=== PATIENT | female | born 2005 | race Hispanic/Latino ===

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

== ENCOUNTER 2024-03-14 21:08 | Emergency (ER) | payer MEDICAID ==
[~2024-03-14] VITALS: Ht 157.5 cm; Wt 71.7 kg
--- NOTE | 2024-03-14 21:34 | ERN ---
ED Note History of Present Illness Stated Complaint: PELVIC PAIN WITH BLOOD IN URINE Chief Complaint: Pelvic Pain Time Seen by MD: 21:11 Dictation: This is a 18-year-old female with multiple medical problems presented to the emergency room with complaints of pelvic pain. She also reported blood in the urine. The pain she points to mostly hypogastric area and deep inside associated with dysuria. No history of any fevers. No nausea vomitings diarrhea hematemesis or melena Temperature 98.8 pulse 100 respirations 15 blood pressure 108/72 with a pulse oximetry of 98% on room air Bipolar, CVA, Diabetes-Type I, Diabetes-Type II, High Cholesterol, Hypertension, Seizure Allergies: Coded Allergies: No Known Drug Allergies (Unverified Allergy, Unknown, 11/03/19) Home Meds Active Scripts Peg 3350/Na Sulf,Bicarb,Cl/KCl (Golytely/Colyte Soln) 236-22.74G Soln, 4000 ML PO AD, #1 ML Mix as directed with water, drink 1 cup every 10 to 15 minutes until stools. 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 As described in the history of present illness MS/Extremity: Negative for injury and deformity Skin: Negative for rash, and discoloration Neuro: Negative for headache, weakness, numbness, tingling, and seizure Psych: Negative for suicide ideation, homicidal ideation, and hallucinations Initial Vital Sign VS Vital Signs Date Time Temp Pulse Resp B/P (MAP) Pulse Ox O2 Delivery O2 Flow Rate FiO2 03/14/24 21:11 98.8 100 15 108/72 98 Room Air* 0 21 Physical Exam Dictation General: awake, alert, NAD Head/Face: Normocephalic, atraumatic facial asymmetry with evidence of facial palsy and ptosis on the left side(which is old) Eyes: PERRL, EOMI, vision at baseline ENT: oral cavity clear, TMs clear, no signs of infection Neck: Trachea midline, supple, no nuchal rigidity Cardiovascular: RRR, normal S1/S2, No MRGs, no JVD Respiratory: CTAB, no respiratory distress, No rales or wheezes Abdomen: Soft, mild tenderness in the hypogastric area r, non-distended, normal bowel sounds, no guarding or rebound. Skin: Warm, dry, normal turgor, no rash MS/Extremity: Pulses equal, no cyanosis, neurovascular intact, FROM Neuro: COAx4, GCS 15, strength 5/5, CN 2-12 intact, normal cerebellar exam, normal gait, Psych: Normal behavior, mood, and affect normal Extremities-trace edema without any palpable cords, Homans sign is negative Results (Laboratory/Radiology) Laboratory/Radiology Laboratory Tests Test 03/14/24 21:35 03/14/24 21:40 White Blood Count 12.2 K/uL (4.8-10.8) H Red Blood Count 5.01 MIL/uL (4.00-5.50) Hemoglobin 13.6 g/dL (12.0-16.0) Hematocrit 39.4 % (36-48) Mean Corpuscular Volume 78.6 fL (80-100) L Mean Corpuscular Hemoglobin 27.1 pg (27.0-33.0) Mean Corpuscular Hemoglobin Concent 34.5 g/dL (32.0-36.0) Red Cell Distribution Width 12.3 % (11.0-15.5) Platelet Count 243 K/uL (130-400) Mean Platelet Volume 11.7 fL (7.5-10.5) H Immature Granulocyte % (Auto) 0.2 % (0-1) Neutrophils (%) (Auto) 65.1 % (40.0-77.0) Lymphocytes (%) (Auto) 26.3 % (21.0-51.0) Monocytes (%) (Auto) 6.5 % (3.0-13.0) Eosinophils (%) (Auto) 1.6 % (0.0-8.0) Basophils (%) (Auto) 0.3 % (0.0-5.0) Neutrophils # (Auto) 7.9 K/uL (1.8-7.7) H Lymphocytes # (Auto) 3.2 K/uL (1.0-4.8) Monocytes # (Auto) 0.8 K/uL (0.1-1.0) Eosinophils # (Auto) 0.20 K/uL (0.00-0.70) Basophils # (Auto) 0.04 K/uL (0.00-0.20) Absolute Immature Granulocyte (auto 0.03 K/uL (0-1) Nucleated Red Blood Cells 0.0 % (0.0-0.19) Sodium Level 140 mmol/L (136-145) Potassium Level 3.5 mmol/L (3.5-5.1) Chloride Level 104 mmol/L (101-111) Carbon Dioxide Level 28 mmol/L (21-32) Blood Urea Nitrogen 7 mg/dL (7-18) Creatinine 0.5 mg/dL (0.5-1.0) Glomerular Filtration Rate Calc 138 mL/min (>90) Random Glucose 382 mg/dL (70-105) H Total Calcium 8.5 mg/dL (8.5-10.1) Urine Color RED (YELLOW) Urine Appearance BLOODY (CLEAR) H Urine pH 6.5 (5.0-8.0) Urine Specific [place] 1.020 (1.001-1.031) Urine Protein 100 mg/dL (NEGATIVE) H Urine Glucose (UA) >=1000 mg/dL (NEGATIVE) H Urine Ketones 15 mg/dL (NEGATIVE) H Urine Occult Blood LARGE (NEGATIVE) H Urine Nitrate POSITIVE (NEGATIVE) H Urine Bilirubin NEGATIVE mg/dL (NEGATIVE) Urine Urobilinogen 1.0 mg/dL (0.2-1.0) Urine Leukocyte Esterase TRACE Bernice/uL (NEGATIVE) H Urine RBC TNTC /HPF (0-1) H Urine WBC 11-25 /HPF (0-1) H Urine Squamous Epithelial Cells None Seen /HPF (0-2) Urine Bacteria Few /HPF (None Seen) Urine HCG, Qualitative NEGATIVE (NEGATIVE) Labs Reviewed?: Yes ED Course ED Course Orders Procedure Category Date Status Time Cbc With Differential LAB 03/14/24 Complete : Basic Metabolic Panel LAB 03/14/24 Complete : Urinalysis Profile LAB 03/14/24 Complete ,Urine Test LAB 03/14/24 Complete 21: 0.9%Nacl 1000ml (Ns PHA 03/14/24 Complete 1000ml) 22:00 Insulin Regular, PHA 03/14/24 Complete Human 3ml (Humulin R 22:00 Culture Urine LIZETTE 03/14/24 In Process 21:58 Ceftriaxone 1g Vial PHA 03/14/24 Verified (Rocephine 1g Inj) 22:30 Phenazopyridine Hcl PHA 03/14/24 Verified 200 Mg Tab (Pyridium 22:30 Current Medications Medications (Trade) Dose Ordered Sig/Kendall Route PRN Reason Start Time Stop Time Status Last Admin Dose Admin Insulin Human Regular (humuLIN R 100 UNIT/ML 3ML) 10 unit ONCE ONCE IV 03/14/24 22:00 03/14/24 22:01 DC Sodium Chloride 1,000 ml @ 0 mls/hr ONCE ONCE IV 03/14/24 22:00 03/14/24 22:01 DC 03/14/24 22:09 Vital Signs Date Time Temp Pulse Resp B/P (MAP) Pulse Ox O2 Delivery O2 Flow Rate FiO2 03/14/24 21:50 98.4 104 18 110/68 97 Room Air* 0 21 03/14/24 21:12 98.8 100 15 108/72 98 Room Air 0 03/14/24 21:11 98.8 100 15 108/72 98 Room Air* 0 21 We will perform diagnostic labs, advanced imaging and administer medications according to the patient's complaint. Once the results are available, will review and personally interpreted the labs to rule out any acute life- threatening emergency the trach require immediate intervention and treatment. I will then re-evaluate the patient after treatment and diagnostic exams have return to determine whether the patient requires any further testing, can safely be discharged home or need further admission to hospital for additional treatment and evaluation. 10:00 p.m. labs reviewed Accu-Chek was 355 and IV fluids and insulin was added. 10:15 p.m. CBC showed a white count of 12.2 BNP 7 is within normal limits except for the sugar of 382. Urinalysis is very abnormal with a very high leuko esterase too numerous to count WBCs as well as RBCs. Urine test is negative. We will give a dose of IV antibiotic and discharge her on p.o. antibiotic t herapy. Medical Decision Making MDM MDM: Differential diagnosis: Rationale: Tests considered and ordered secondary to shared decision making include: Previous outside records reviewed: Old ER visits. Risk of complication and/or morbidity or mortality of patient management: None Medications-Per medication reconciliation Need for hospitalization: Patient does not meet criteria for hospitalization. Need for emergency major/minor surgery: No There are no social concerns with this patient. Prescription drug management Prescriptions will include symptomatic care Patient's prior external medical records from other ER visits were reviewed by me as indicated. Prior testing and results from previous visits were reviewed. Prior tests were taken into account with medical decision making and resource utilization, independent historian/historians were used to obtain complete medical history. I independently interpreted the test that were performed, results were reviewed by me and considered findings on radiology if ordered. Medical management and examination interpretation discussions were had by me with other qualified healthcare professionals as indicated for the patient's care. Problem List Problem List: (1) Acute cystitis (2) Uncontrolled diabetes mellitus with hyperglycemia, with long-term current use of insulin (3) History of nephrolithiasis DX & DISP Disposition: Discharge Departure Impression: Primary Impression: Acute cystitis Additional Impressions: Uncontrolled diabetes mellitus with hyperglycemia, with long-term current use of insulin, History of nephrolithiasis Condition: Stable Scripts Phenazopyridine HCl (Pyridium) 200 Mg Tablet 200 MG PO TID for painful urination, #10 TAB 0 Refills Prov: GERRY LEIGH MD 03/14/24 Nitrofurantoin Monohyd/M-Cryst (Macrobid 100 mg Capsule) 100 Mg Capsule 1 CAP PO BID for 10 Days, #20 CAP 0 Refills Prov: GERRY LEIGH MD 03/14/24 Additional Instructions: Patient and the caregiver have been informed of all the diagnostic tests and the imaging conducted during the today's visit to the emergency room and has verbalized understanding of the results I have personally reviewed and interpreted all diagnostic exams performed here in the ER today as well as the vital signs documented by the nursing staff. The patient is now being discharged to home and should follow up with the primary care physician or the s pecialist as directed by the ER staff. Follow-up with primary care provider in 1 to 2 days. Take medications as directed here in the emergency room. Okay to continue home medications unless otherwise discussed during your visit in the emergency room today. Return to your nearest emergency room if symptoms worsen or if there is no improvement. Call 911 if you need immediate assistance. Take Tylenol or Motrin [id number] as needed and if no contraindications are present. Increase oral hydration. A wound culture or urine culture was ordered here in the emergency room department please follow-up with primary care provider and advise them to get repeat ports from our facility. If you had any Vinh wrap/splints that were applied here, please do not remove them until you see your primary care or specialty. Referrals: MEHNAZ DOBBINS DO (PCP) GERRY LEIGH MD Mar 14, 2024 21:34
[2024-03-14 21:43] LABS: BASOPHILS # (AUTO) 0.04 K/uL (0.00-0.20); BASOPHILS % (AUTO) 0.3 % (0.0-5.0); EOSINOPHILS % (AUTO) 1.6 % (0.0-8.0); HEMATOCRIT 39.4 % (36-48); IMMATURE GRANULOCYTE ABSOLUTE 0.03 K/uL (0-1); LYMPHOCYTES # (AUTO) 3.2 K/uL (1.0-4.8); LYMPHOCYTES % (AUTO) 26.3 % (21.0-51.0); MEAN CORPUSCULAR HEMOGLOBIN 27.1 pg (27.0-33.0); MEAN CORPUSCULAR HGB CONC 34.5 g/dL (32.0-36.0); MEAN CORPUSCULAR VOLUME 78.6 fL (80-100); MONOCYTES # (AUTO) 0.8 K/uL (0.1-1.0); MONOCYTES % (AUTO) 6.5 % (3.0-13.0); NEUTROPHILS # (AUTO) 7.9 K/uL (1.8-7.7); NEUTROPHILS % (AUTO) 65.1 % (40.0-77.0); PLATELET COUNT (AUTO) 243 K/uL (130-400); RED BLOOD CELL COUNT(AUTO) 5.01 MIL/uL (4.00-5.50); RED CELL DISTRIBUTION WIDTH 12.3 % (11.0-15.5); WHITE BLOOD COUNT (AUTO) 12.2 K/uL (4.8-10.8)
[2024-03-14 21:51] LABS: CREATININE 0.5 mg/dL (0.5-1.0); POTASSIUM 3.5 mmol/L (3.5-5.1)
[2024-03-14 21:54] LABS: BILIRUBIN,URINE NEGATIVE (NEGATIVE); GLUCOSE, URINE (UA) >=1000 mg/dL (NEGATIVE); KETONES,URINE 15 mg/dL (NEGATIVE); LEUKOCYTE ESTERASE ,URINE TRACE Leu/uL (NEGATIVE); NITRATE,URINE POSITIVE (NEGATIVE); OCCULT BLOOD,URINE LARGE (NEGATIVE); PH,URINE 6.5 (5.0-8.0); PROTEIN,URINE 100 mg/dL (NEGATIVE)
[2024-03-14 21:58] LABS: ADD UA MICROSCOPIC YES; APPEARANCE,URINE BLOODY (CLEAR); COLOR,URINE RED (YELLOW)
[2024-03-14 22:03] LABS: BACTERIA,URINE Few /HPF (None Seen); RBC,URINE TNTC /HPF (0-1)
[2024-03-14 22:04] LABS: SQUAMOUS EPITHELIAL CELL,UR None Seen /HPF (0-2)
[2024-03-14 22:05] LABS: HCG,QUALITATIVE URINE NEGATIVE (NEGATIVE)
[2024-03-14] MEDS: 0.9%NACL 1000ML 1,000 ML IV ONE (22:09)
[2024-03-14] MEDS ORDERED: NITR100C4 PO (22:19)
[2024-03-14] MEDS ORDERED: PHEN-776 PO (22:19)
[2024-03-14] MEDS: INSULIN humuLIN R 100 UNIT/ML 3ML IV ONE (22:22)
[2024-03-14] MEDS: cefTRIAXone 1G VIAL IVPB ONE (22:26)
[2024-03-14] MEDS: PHENAZOpyridine HCL 200 MG TAB 200 MG TABLET PO ONE (22:27)
[2024-03-14 23:14] VITALS: BP 115/56; PULSE 99; RESP 18; TEMP 98.4; O2SAT 98
== END 2024-03-14 23:34 | disposition home or self-care (01) ==
LOC: EDH 21:08 → EDBD 21:08 → EDH 23:34
DX: N30.01 Acute cystitis with hematuria (principal); E10.65 Type 1 diabetes mellitus with hyperglycemia; E78.00 Pure hypercholesterolemia, unspecified; I10 Essential (primary) hypertension; Z79.4 Long term (current) use of insulin; Z86.73 Personal history of transient ischemic attack (TIA), and cerebral infarction without residual deficits
CPT/HCPCS: 99284; 96365; 96375; 80048; 85025; 87086; 82948; 81001; 81025; 36415; J1815; J7030; J0696

== ENCOUNTER 2024-03-30 13:32 | Emergency (ER) | payer MEDICAID ==
[~2024-03-30] VITALS: Ht 157.5 cm; Wt 71.7 kg
[~2024-03-30 13:32] MED LIST changes: +NITR100C4 PO; +PHEN-776 PO
--- NOTE | 2024-03-30 13:40 | ERN ---
ED Note History of Present Illness Stated Complaint: DYSURIA, PELVIC PAIN Chief Complaint: Painful Urination Time Seen by MD: 13:33 Dictation: PATIENT IS A 18-YEAR-OLD FEMALE COMING IN TODAY WITH LEFT FLANK PAIN THAT RADIATES TO LEFT LOWER QUADRANT WITH NAUSEA. SHE ALSO STATES SHE IS HAVING DYSURIA AND FREQUENCY. STATES SHE HAS A HISTORY OF KIDNEY STONES AND HAS A DIABETIC. SHE DID NOT GO SEE HER PRIMARY CARE DOCTOR. Allergies: Coded Allergies: No Known Drug Allergies (Unverified Allergy, Unknown, 11/03/19) Home Meds Active Scripts Ibuprofen (Ibuprofen 800 mg Tab) 800 Mg Tab, 800 MG PO Q8H PRN for fever or pain, #30 TAB 0 Refills Prov:ESTUARDO JUAREZ NP 03/30/24 Phenazopyridine HCl (Pyridium) 200 Mg Tablet, 200 MG PO TID for painful urination, #10 TAB 0 Refills Prov:ESTUARDO JUAREZ NP 03/30/24 Amoxicillin/Potassium Clav (Amox Tr-K Clv 875-125 mg Tab) 875 Mg-125 Mg Tablet, 1 EACH PO BID for 7 Days, #14 TAB 0 Refills Prov:ESTUARDO JUAREZ NP 03/30/24 Phenazopyridine HCl (Pyridium) 200 Mg Tablet, 200 MG PO TID for painful urination, #10 TAB 0 Refills Prov:GERRY LEIGH MD 03/14/24 Nitrofurantoin Monohyd/M-Cryst (Macrobid 100 mg Capsule) 100 Mg Capsule, 1 CAP PO BID for 10 Days, #20 CAP 0 Refills Prov:GERRY LEIGH MD 03/14/24 Peg 3350/Na Sulf,Bicarb,Cl/KCl (Golytely/Colyte Soln) 236-22.74G Soln, 4000 ML PO AD, #1 ML Mix as directed with water, drink 1 cup every 10 to 15 minutes until stools. Prov:ESTUARDO JUAREZ NP 06/14/23 Ondansetron (Ondansetron Odt) 4 Mg Tab.rapdis, 4 MG PO Q6HPRN PRN for nausea, #10 TAB 0 Refills Prov:JANY BONNER Sr., MD 03/02/23 Metronidazole (Metronidazole) 500 Mg Tablet, 500 MG PO TID for 10 Days, #30 TAB 0 Refills Prov:JANY BONNER Sr., MD 03/02/23 Metronidazole (Metronidazole) 500 Mg Tablet, 500 MG PO TID for 10 Days, #30 TAB 0 Refills Prov:JANY BONNER Sr., MD 02/03/23 Past Medical History Past Medical History: Bipolar, CVA, Diabetes-Type I, Diabetes-Type II, High Cholesterol, Hypertension, Seizure Additional Past Medical Hx: 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 Surgical History: None PSYCH History: no pertinent psych hx Family History: Negative History: Not Applicable LMP: Mar 17, 2024 RN Note Reviewed/Agreed w/PFSH: Yes Review of System Dictation CONSTITUTIONAL: NEGATIVE EXCEPT FOR HPI HEAD/FACE: NEGATIVE EXCEPT FOR HPI EENT: NEGATIVE EXCEPT FOR HPI RESPIRATORY: NEGATIVE EXCEPT FOR HPI GASTROINTESTINAL/ABDOMINAL: NEGATIVE EXCEPT FOR HPI LEFT FLANK PAIN RADIATING LEFT LOWER QUADRANT WITH NAUSEA GENITOURINARY: NEGATIVE EXCEPT FOR HPI DYSURIA AND FREQUENCY MUSCULOSKELETAL: NEGATIVE EXCEPT FOR HPI INTEGUMENTARY: NEGATIVE EXCEPT FOR HPI NEUROLOGICAL/PSYCH: NEGATIVE EXCEPT FOR HPI HEMATOLOGIC/LYMPHATIC: NEGATIVE EXCEPT FOR HPI ALL SYSTEMS NEGATIVE, EXCEPT NOTED ABOVE. 13 POINT REVIEW OF SYSTEMS ASSESSED AND ALL NEGATIVE EXCEPT FOR ABOVE. Initial Vital Sign VS Vital Signs Date Time Temp Pulse Resp B/P (MAP) Pulse Ox O2 Delivery O2 Flow Rate FiO2 03/30/24 13:33 98.4 105 16 106/75 98 Room Air 0 03/30/24 16:22 21 Physical Exam Dictation VITAL SIGNS REVIEWED GENERAL APPEARANCE: ALERT, ORIENTED X 3, MODERATE ACUTE DISTRESS, WELL DEVELOPED, NOURISHED. HEAD AND FACE: NON-TRAUMATIC. EYES: PERRL, PINK CONJUNCTIVAS, EYELID NO TRAUMA, ANTERIOR CHAMBER WITH ARCUS SENILIS. EARS: PINNAS INTACT AND NO SIGNS OF TRAUMA OR ERYTHEMA EAR CANALS CLEAR AND NO DISCHARGE TM NO ERYTHEMA NOSE: NO DISCHARGE, NO BLEEDING. OROPHARYNX: MOUTH NORMAL, TONGUE PINK, PHARYNX CLEAR,NO ERYTHEMA, TONSILS NO EXUDATES, NO ABSCESSES NOTED, MUCOUS MEMBRANE MOIST NECK: SUPPLE, NON-TENDER, NO THYROMEGALY, NO MASSES, NO JVD, NO BRUITS BREAST:DEFERRED CHEST:NO TENDERNESS, NO CREPITUS, NO PARADOXICAL MOVEMENT, NO RETRACTIONS LUNGS:CLEAR, WELL-VENTILATED, SYMMETRIC, NO RALES, NO WHEEZING, NO RHONCHI, NO STRIDOR, GOOD BREATH SOUNDS BILATERALLY HEART: REGULAR RATE, REGULAR RHYTHM, NO MURMUR, NO GALLOPS VASCULAR: NO PERIPHERAL EDEMA, ABDOMEN: SOFT, POSITIVE BOWEL SOUNDS, NONDISTENDED, NO GUARDING, NONTENDER, NO REBOUND, NO MASSES NO HEPATOMEGALY, NO SPLENOMEGALY, NO DAVISON'S SIGN, NO HERNIAS. NEGATIVE CVAT RECTAL: DEFERRED GENITAL: DEFERRED MILD SUPRAPUBIC TENDERNESS, PALPATED OVER HER CLOTHES NEUROLOGICAL: NORMAL SPEECH, MOTOR FUNCTION INTACT, SENSORY FUNCTION INTACT MUSCULOSKELETAL: NECK NONTENDER, FULL RANGE OF MOTION, BACK NONTENDER, FULL RANGE OF MOTION, EXTREMITIES: NONTENDER, FULL RANGE OF MOTION SKIN: COLOR PINK, DRY, NO TURGOR, NO RASH, NO LACERATIONS, NO ABRASIONS, NO CONTUSIONS. LYMPHATIC: DEFERRED Results (Laboratory/Radiology) Laboratory/Radiology ABDOMEN/PELVIS W/O CONTRAST HISTORY: No additional history given. COMPARISON: None TECHNIQUE: Multiple sequential axial images of the abdomen and pelvis were obtained from the dome of the diaphragm through symphysis pubis. Patient was not given contrast through intravenous route. Oral contrast was not given. FINDINGS: No pleural effusion is seen bilaterally. There is no evidence of parenchymal disease or pulmonary nodule of the visualized lower lungs. The heart is not enlarged. The liver, spleen, adrenal glands and pancreas are unremarkable. There is no evidence of hydronephrosis bilaterally. No evidence of renal stone is seen. Fecal material is seen in the colon. There are normal size retroperitoneal and mesenteric lymph nodes. No ascites is seen. No CT evidence of acute appendicitis is seen. Clinical correlation is recommended. Pelvic sidewalls are symmetric bilaterally. Bladder is moderately distended. IMPRESSION: 1. No acute findings. Labs Reviewed?: Yes ED Course ED Course 1615 PATIENT HAS A LARGE UTI WITH HEMATURIA. BLOOD SUGAR 385 HOWEVER SHE STATES SHE WILL TAKE HER DIABETIC MEDICATIONS WHEN SHE GETS HOME, SHE SAID SHE FORGOT IT THIS MORNING. WE WILL GIVE1 G OF ROCEPHIN IV DISCHARGED HOME WITH ACUTE CYSTITIS WITH HEMATURIA UNCONTROLLED DIABETES TOLD TO SEE HER PRIMARY CARE DOCTOR Medical Decision Making MDM MDM: DIFFERENTIAL DIAGNOSIS: DIVERTICULITIS/CYSTITIS/ECTOPIC /ELECTROLYTE IMBALANCE/DEHYDRATION/PELVIC PAIN RATIONALE: TESTS CONSIDERED AND ORDERED SECONDARY TO SHARED DECISION MAKING INCLUDE: LAB/RADIOLOGY PREVIOUS OUTSIDE RECORDS REVIEWED: OLD ER VISITS. RISK OF COMPLICATION AND/OR MORBIDITY OR MORTALITY OF PATIENT MANAGEMENT: NONE MEDICATIONS-PER MEDICATION RECONCILIATION SEE NURSE'S NOTE NEED FOR HOSPITALIZATION: PATIENT DOES NOT MEET CRITERIA FOR HOSPITALIZATION. NO NEED FOR EMERGENCY MAJOR/MINOR SURGERY: NO THERE ARE NO SOCIAL CONCERNS WITH THIS PATIENT. PRESCRIPTION DRUG MANAGEMENT AUGMENTIN PRESCRIPTIONS WILL INCLUDE SYMPTOMATIC CARE PATIENT'S PRIOR EXTERNAL MEDICAL RECORDS FROM OTHER ER VISITS WERE REVIEWED BY ME INDICATED. PRIOR TESTING AND RESULTS FROM PREVIOUS VISITS WERE REVIEWED. PRIOR TESTS WERE TAKEN INTO ACCOUNT WITH MEDICAL DECISION MAKING AND RESOURCE UTILIZATION, INDEPENDENT HISTORIAN/HISTORIANS WERE USED TO OBTAIN COMPLETE MEDICAL HISTORY. I INDEPENDENTLY INTERPRETED THE TEST THAT WERE PERFORMED, RESULTS WERE REVIEWED BY ME AND CONSIDERED FINDINGS ON RADIOLOGY IF ORDERED. MEDICAL MANAGEMENT AND EXAMINATION INTERPRETATION DISCUSSIONS WERE HAD BY ME WITH OTHER QUALIFIED HEALTHCARE PROFESSIONALS INDICATED FOR THE PATIENT'S CARE. DX & DISP Disposition: Discharge Departure Impression: Primary Impression: Acute cystitis with hematuria Additional Impressions: Dysuria, Uncontrolled diabetes mellitus Condition: Stable Scripts Ibuprofen (Ibuprofen 800 mg Tab) 800 Mg Tab 800 MG PO Q8H PRN for fever or pain, #30 TAB 0 Refills Prov: ESTUARDO JUAREZ NP 03/30/24 Phenazopyridine HCl (Pyridium) 200 Mg Tablet 200 MG PO TID for painful urination, #10 TAB 0 Refills Prov: ESTUARDO JUAREZ NP 03/30/24 Amoxicillin/Potassium Clav (Amox Tr-K Clv 875-125 mg Tab) 875 Mg-125 Mg Tablet 1 EACH PO BID for 7 Days, #14 TAB 0 Refills Prov: ESTUARDO JUAREZ NP 03/30/24 Additional Instructions: FOLLOW-UP WITH PRIMARY CARE PROVIDER IN 1 TO 2 DAYS. TAKE MEDICATIONS DIRECTED HERE IN THE EMERGENCY ROOM. OKAY TO CONTINUE HOME MEDICATIONS UNLESS OTHERWISE DISCUSSED DURING YOUR VISIT IN THE EMERGENCY ROOM TODAY. RETURN TO YOUR NEAREST EMERGENCY ROOM IF SYMPTOMS WORSEN OR IF THERE IS NO IMPROVEMENT. CALL 911 IF YOU NEED IMMEDIATE ASSISTANCE. TAKE TYLENOL OR MOTRIN [id number] NEEDED AND IF NO CONTRAINDICATIONS ARE PRESENT. INCREASE ORAL HYDRATION. A WOUND CULTURE OR URINE CULTURE WAS ORDERED HERE IN THE EMERGENCY ROOM DEPARTMENT PLEASE FOLLOW-UP WITH PRIMARY CARE PROVIDER AND ADVISE THEM TO GET REPEAT PORTS FROM OUR FACILITY. IF YOU HAD ANY LUIS WRAP/SPLINTS THAT WERE APPLIED HERE, PLEASE DO NOT REMOVE THEM UNTIL YOU SEE YOUR PRIMARY CARE OR SPECIALTY. TAKE ANTIBIOTICS DIRECTED UNTIL GONE, TAKE YOUR DIABETIC MEDICATIONS SOON YOU RETURN HOME. INCREASE YOUR WATER INTAKE. SEE YOUR PRIMARY CARE DOCTOR FOR FOLLOW UP IN 1-2 DAYS Referrals: MEHNAZ DOBBINS DO (PCP) Time of Disposition: 16:20 I have reviewed the case, and I agree with, Diagnosis and Plan ATTESTATION BY PHYSICIAN I PERFORMED THE SUBSTANTIVE PORTION OF THE VISIT. I HAVE REVIEWED AND PERSONALLY MADE AND APPROVED THE MANAGEMENT PLAN THAT IS DOCUMENTED IN THE NOTE BY MYSELF FOR THE A PP. I ACKNOWLEDGED FOR RESPONSIBILITY FOR THE PATIENT'S MANAGEMENT PLAN. ESTUARDO JUAREZ NP Mar 30, 2024 13:40 WINSTON IQBAL MD Apr 02, 2024 18:13
[2024-03-30 14:01] LABS: BASOPHILS # (AUTO) 0.04 K/uL (0.00-0.20); BASOPHILS % (AUTO) 0.3 % (0.0-5.0); EOSINOPHILS # (AUTO) 0.15 K/uL (0.00-0.70); EOSINOPHILS % (AUTO) 1.3 % (0.0-8.0); HEMATOCRIT 46.1 % (36-48); IMMATURE GRANULOCYTE ABSOLUTE 0.03 K/uL (0-1); LYMPHOCYTES # (AUTO) 1.8 K/uL (1.0-4.8); LYMPHOCYTES % (AUTO) 15.2 % (21.0-51.0); MEAN CORPUSCULAR HEMOGLOBIN 26.6 pg (27.0-33.0); MEAN CORPUSCULAR HGB CONC 33.6 g/dL (32.0-36.0); MEAN CORPUSCULAR VOLUME 79.1 fL (80-100); MONOCYTES # (AUTO) 0.8 K/uL (0.1-1.0); MONOCYTES % (AUTO) 7.1 % (3.0-13.0); NEUTROPHILS % (AUTO) 75.8 % (40.0-77.0); PLATELET COUNT (AUTO) 237 K/uL (130-400); RED BLOOD CELL COUNT(AUTO) 5.83 MIL/uL (4.00-5.50); RED CELL DISTRIBUTION WIDTH 12.1 % (11.0-15.5); WHITE BLOOD COUNT (AUTO) 11.9 K/uL (4.8-10.8)
[2024-03-30 14:07] LABS: CREATININE 0.6 mg/dL (0.5-1.0); POTASSIUM 3.9 mmol/L (3.5-5.1)
[2024-03-30] MEDS: ondanSETRON 4MG INJ IVP ONE (14:12)
[2024-03-30] MEDS: 0.9%NACL 1000ML 1,000 ML IV ONE (14:12)
[2024-03-30] MEDS: ketOROlac 30MG VIAL (30MG/ML) IVP ONE (14:14)
--- NOTE | 2024-03-30 14:15 | NUR ---
PT IN CT AT THIS TIME
--- NOTE | 2024-03-30 14:52 | HMCIMG ---
CT ABDOMEN/PELVIS W/O CONTRAST HISTORY: No additional history given. COMPARISON: None TECHNIQUE: Multiple sequential axial images of the abdomen and pelvis were obtained from the dome of the diaphragm through symphysis pubis. Patient was not given contrast through intravenous route. Oral contrast was not given. FINDINGS: No pleural effusion is seen bilaterally. There is no evidence of parenchymal disease or pulmonary nodule of the visualized lower lungs. The heart is not enlarged. The liver, spleen, adrenal glands and pancreas are unremarkable. There is no evidence of hydronephrosis bilaterally. No evidence of renal stone is seen. Fecal material is seen in the colon. There are normal size retroperitoneal and mesenteric lymph nodes. No ascites is seen. No CT evidence of acute appendicitis is seen. Clinical correlation is recommended. Pelvic sidewalls are symmetric bilaterally. Bladder is moderately distended. IMPRESSION: 1. No acute findings. CT was performed with one or more following dose reduction techniques: automated exposure control, adjustment of the mA and kv according to patient's size, or use of a iterative reconstruction technique.
[2024-03-30 15:51] LABS: HCG,QUALITATIVE URINE NEGATIVE (NEGATIVE)
[2024-03-30 15:58] LABS: ADD UA MICROSCOPIC YES; APPEARANCE,URINE CLOUDY (CLEAR); BILIRUBIN,URINE NEGATIVE (NEGATIVE); COLOR,URINE LIGHT-YELLOW (YELLOW); GLUCOSE, URINE (UA) >=1000 mg/dL (NEGATIVE); KETONES,URINE 100 mg/dL (NEGATIVE); LEUKOCYTE ESTERASE ,URINE 250 Leu/uL (NEGATIVE); NITRATE,URINE NEGATIVE (NEGATIVE); OCCULT BLOOD,URINE LARGE (NEGATIVE); PROTEIN,URINE 30 mg/dL (NEGATIVE); UROBILINOGEN,URINE 0.2 mg/dL (0.2-1.0)
[2024-03-30 15:59] LABS: MUCUS,URINE RARE LPF (None Seen); RBC,URINE 51-100 /HPF (0-1); SQUAMOUS EPITHELIAL CELL,UR RARE /HPF (0-2); WBC CLUMP FEW /HPF (0-1); WBC,URINE TNTC /HPF (0-1)
[2024-03-30] MEDS ORDERED: AMOX1TAB16 PO (16:21)
[2024-03-30] MEDS ORDERED: IBUP-2077 PO (16:21)
[2024-03-30] MEDS ORDERED: PHEN-776 PO (16:21)
[2024-03-30 16:22] VITALS: BP 110/72; PULSE 90; RESP 16; TEMP 98.4; O2SAT 98
[2024-03-30] MEDS: cefTRIAXone 1G VIAL IVP ONE (16:53)
--- NOTE | 2024-04-01 08:23 | NUR ---
UPON REVIEW OF CULTURE RESULTS BY DR. HALL, ABX NEED TO CHANGE TO MACROBID 100MG PO BID X 7 DAYS. ATTEMPTED TO CALL PT, NO ASNWER LEFT VOICEMAIL.
== END 2024-03-30 17:22 | disposition home or self-care (01) ==
LOC: EDH 13:32
DX: N30.01 Acute cystitis with hematuria (principal); R30.0 Dysuria; E11.65 Type 2 diabetes mellitus with hyperglycemia; E78.00 Pure hypercholesterolemia, unspecified; I10 Essential (primary) hypertension; Z86.73 Personal history of transient ischemic attack (TIA), and cerebral infarction without residual deficits
CPT/HCPCS: 99285; 74176; 96374; 96361; 96375; 80048; 85025; 87086 ×2; 87186; 81001; 81025; 36415; J7030; J0696; J2405; J1885

== ENCOUNTER 2024-07-13 07:24 | Emergency (ER) | payer MEDICAID ==
[~2024-07-13] VITALS: Ht 157.5 cm; Wt 71.2 kg
[~2024-07-13 07:24] MED LIST changes: +AMOX1TAB16 PO; +IBUP-2077 PO
--- NOTE | 2024-07-13 07:34 | ERN ---
General Chief Complaint: Flank Pain Stated Complaint: LEFT FLANK PAIN Time Seen by MD: 07:26 Source: patient History of Present Illness Initial Comments Patient is a 18-year-old female coming in to be evaluated for left flank pain. Patient states that the pain is localized in the left flank region. She also states he does have a history of kidney stones has flare-ups as well. Patient states it is the pain began earlier in the morning. Allergies: Coded Allergies: No Known Drug Allergies (Unverified Allergy, Unknown, 11/03/19) Home Meds Active Scripts Ibuprofen (Ibuprofen 800 mg Tab) 800 Mg Tab, 800 MG PO Q8H PRN for fever or pain, #30 TAB 0 Refills Prov:ESTUARDO JUAREZ NP 03/30/24 Phenazopyridine HCl (Pyridium) 200 Mg Tablet, 200 MG PO TID for painful urination, #10 TAB 0 Refills Prov:ESTUARDO JUAREZ NP 03/30/24 Amoxicillin/Potassium Clav (Amox Tr-K Clv 875-125 mg Tab) 875 Mg-125 Mg Tablet, 1 EACH PO BID for 7 Days, #14 TAB 0 Refills Prov:ESTUARDO JUAREZ NP 03/30/24 Phenazopyridine HCl (Pyridium) 200 Mg Tablet, 200 MG PO TID for painful urination, #10 TAB 0 Refills Prov:GERRY LEIGH MD 03/14/24 Nitrofurantoin Monohyd/M-Cryst (Macrobid 100 mg Capsule) 100 Mg Capsule, 1 CAP PO BID for 10 Days, #20 CAP 0 Refills Prov:GERRY LEIGH MD 03/14/24 Peg 3350/Na Sulf,Bicarb,Cl/KCl (Golytely/Colyte Soln) 236-22.74G Soln, 4000 ML PO AD, #1 ML Mix as directed with water, drink 1 cup every 10 to 15 minutes until stools. Prov:ESTUARDO JUAREZ NP 06/14/23 Ondansetron (Ondansetron Odt) 4 Mg Tab.rapdis, 4 MG PO Q6HPRN PRN for nausea, #10 TAB 0 Refills Prov:JANY BONNER Sr., MD 03/02/23 Metronidazole (Metronidazole) 500 Mg Tablet, 500 MG PO TID for 10 Days, #30 TAB 0 Refills Prov:JANY BONNER Sr., MD 03/02/23 Metronidazole (Metronidazole) 500 Mg Tablet, 500 MG PO TID for 10 Days, #30 TAB 0 Refills Prov:JANY BONNER Sr., MD 02/03/23 Reported Medications Dapagliflozin Propanediol (Farxiga) 5 Mg Tablet, 1 TAB PO DAILY for 30 Days, #30 TAB 0 Refills 07/13/24 Buspirone HCl (Buspirone HCl) 5 Mg Tablet, 1 TAB PO BID for 30 Days, #60 TAB 0 Refills 07/13/24 Lisinopril (Lisinopril) 20 Mg Tablet, 1 TAB PO DAILY for 30 Days, #30 TAB 0 Refills 07/13/24 Insulin Glargine,Hum.rec.anlog (Lantus) 100 Unit/Ml Inj, 100 UNITS SQ DAILY, ML 07/13/24 Past Medical History Past Medical History: Bipolar, CVA, Diabetes-Type I, Diabetes-Type II, High Cholesterol, Hypertension, Seizure Medical History Other: 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 Past Surgical History: None Family History Family History: Negative Female( History) History: Not Applicable ROS Dictation CONSTITUTIONAL: No chills, no fever, no weakness, no diaphoresis, no malaise. HEAD/FACE: No signs of trauma. EENT: No eye pain, no blurred vision, no tearing, no double vision, no ear pain, no ear discharge, no nose pain, no nasal congestion, no throat pain, no throat swelling, no mouth pain. RESPIRATORY: No cough, no orthopnea, no SOB, no stridor, no wheezing. CARDIOVASCULAR: No chest pain, no edema, no palpitations, no syncope. GASTROINTESTINAL/ABDOMINAL: abdominal pain, no constipation, no diarrhea, no nausea, no vomiting. GENITOURINARY: No abnormal discharge, no dysuria, no frequent urination, no hematuria. No complaints of pain in the genitals. MUSCULOSKELETAL: No back pain, no gout, no joint pain, no joint swelling, no muscle pain, no muscle stiffness, no neck pain. INTEGUMENTARY: No change in color, no change in hair/nails, no dryness, no lesion, no lumps, no rash. NEUROLOGICAL/PSYCH: No anxiety, not depressed, no emotional problem, no headache, no numbness, no pre-existing deficit, no history of seizures, no tremors, no weakness. HEMATOLOGIC/LYMPHATIC: Not anemic, no history of blood clots, no apparent bleeding, no bruising, glands not swollen. All Systems Negative, Except as Noted. Physical Exam Physical Exam Dictation VITAL SIGNS: Reviewed. GENERAL APPEARANCE: Alert, oriented x3, no acute distress, obese. HEAD AND FACE: Non-traumatic. EYES: PERRL, pink conjunctivas, eyelid no trauma, anterior chamber clear. EARS: Pinnas intact and no signs of trauma or erythema. Ear canals clear and no discharge. TMs no erythema. NOSE: No discharge, no bleeding. OROPHARYNX: Mouth normal, teeth no caries, tongue pink. Pharynx clear, no erythema. Tonsils no exudates, no abscesses noted. Mucous membrane moist. NECK: Supple, non-tender, no thyromegaly, no masses, no JVD, no bruits. BREAST: Deferred. CHEST: No tenderness, no crepitus, no paradoxical movement, no retractions. LUNGS: Clear, well-ventilated, symmetric, no rales, no wheezing, no rhonchi, no stridor, good breath sounds bilaterally. HEART: Regular rate, regular rhythm, no murmur, no gallops. VASCULAR: No peripheral edema. ABDOMEN: Soft, positive bowel sounds, nondistended, no guarding, left flank pain, left CVA angle tingling in his, no rebound, no masses no hepatomegaly, no splenomegaly, no Levin's sign, no hernias. RECTAL: Deferred. GENITAL: Deferred. NEUROLOGICAL: Normal speech, gross motor function intact, gross sensory function intact. MUSCULOSKELETAL: Neck nontender, full range of motion, back nontender, full range of motion. EXTREMITIES: Nontender, full range of motion. SKIN: Color pink, dry, no turgor, no rash, no lacerations, no abrasions, no contusions. LYMPHATICS: Deferred. Results Laboratory and Microbiology Lab and Micro Result Laboratory Tests Test 07/13/24 07:45 White Blood Count 10.8 K/uL (4.8-10.8) Red Blood Count 5.89 MIL/uL (4.00-5.50) H Hemoglobin 15.5 g/dL (12.0-16.0) Hematocrit 45.2 % (36-48) Mean Corpuscular Volume 76.7 fL (80-100) L Mean Corpuscular Hemoglobin 26.3 pg (27.0-33.0) L Mean Corpuscular Hemoglobin Concent 34.3 g/dL (32.0-36.0) Red Cell Distribution Width 12.7 % (11.0-15.5) Platelet Count 266 K/uL (130-400) Mean Platelet Volume 11.4 fL (7.5-10.5) H Immature Granulocyte % (Auto) 0.4 % (0-1) Neutrophils (%) (Auto) 67.0 % (40.0-77.0) Lymphocytes (%) (Auto) 23.5 % (21.0-51.0) Monocytes (%) (Auto) 7.6 % (3.0-13.0) Eosinophils (%) (Auto) 1.3 % (0.0-8.0) Basophils (%) (Auto) 0.2 % (0.0-5.0) Neutrophils # (Auto) 7.3 K/uL (1.8-7.7) Lymphocytes # (Auto) 2.5 K/uL (1.0-4.8) Monocytes # (Auto) 0.8 K/uL (0.1-1.0) Eosinophils # (Auto) 0.14 K/uL (0.00-0.70) Basophils # (Auto) 0.02 K/uL (0.00-0.20) Absolute Immature Granulocyte (auto 0.04 K/uL (0-1) Nucleated Red Blood Cells 0.0 % (0.0-0.19) Urine Color STRAW (YELLOW) Urine Appearance TURBID (CLEAR) Urine pH 6.5 (5.0-8.0) Urine Specific [place] 1.010 (1.001-1.031) Urine Protein NEGATIVE mg/dL (NEGATIVE) Urine Glucose (UA) >=1000 mg/dL (NEGATIVE) H Urine Ketones 15 mg/dL (NEGATIVE) H Urine Occult Blood MODERATE (NEGATIVE) H Urine Nitrate NEGATIVE (NEGATIVE) Urine Bilirubin NEGATIVE mg/dL (NEGATIVE) Urine Urobilinogen 0.2 mg/dL (0.2-1.0) Urine Leukocyte Esterase SMALL Bernice/uL (NEGATIVE) H Urine RBC 2-5 /HPF (0-1) H Urine WBC TNTC /HPF (0-1) H Urine Squamous Epithelial Cells Few /HPF (0-2) Urine Bacteria Moderate /HPF (None Seen) H Sodium Level 136 mmol/L (136-145) Potassium Level 3.5 mmol/L (3.5-5.1) Chloride Level 100 mmol/L (101-111) L Carbon Dioxide Level 28 mmol/L (21-32) Blood Urea Nitrogen 6 mg/dL (7-18) L Creatinine 0.5 mg/dL (0.5-1.0) Glomerular Filtration Rate Calc 138 mL/min (>90) Random Glucose 376 mg/dL (70-105) H Total Calcium 9.2 mg/dL (8.5-10.1) Serum Test, Qualitative NEGATIVE (NEGATIVE) Urine Opiates Screen NEGATIVE (NEGATIVE) Urine Barbiturates Screen NEGATIVE (NEGATIVE) Urine Phencyclidine Screen NEGATIVE (NEGATIVE) Urine Amphetamines Screen NEGATIVE (NEGATIVE) Urine Benzodiazepines Screen NEGATIVE (NEGATIVE) Urine Cocaine Screen NEGATIVE (NEGATIVE) Urine Marijuana (THC) Screen NEGATIVE (NEGATIVE) Labs Reviewed?: Yes EKG/XRAY/US/CT/MRI CT Scan Comment [address] [address] IMAGING REPORT Signed PATIENT: CLARENCE ORTIZ MR#: [id number] : 2005 SEX: F AGE: 18 LOCATION: [facility] ORDER 6 STATUS: [facility] REPORT#: [id number] SERVICE REASON: LEFT FLANK PAIN ORDERING PHYSICIAN: WINSTON IQBAL MD PROCEDURE: ABD PEL WO - CT ABDOMEN/PELVIS W/O CONTRAST CT ABDOMEN WITHOUT CONTRAST. CT PELVIS WITHOUT CONTRAST. INDICATION: Left flank pain TECHNIQUE: Routine transaxial imaging using 5 mm slice thickness through the abdomen and pelvis without the administration of IV contrast. Thin slice reconstructions are also provided. Coronal and sagittal reformatted images acquired for interpretation. CT was performed with one or more of the following dose reduction techniques: Automated exposure control, adjustment of the mA and/or kV according to patient size, or use of iterative reconstruction technique. COMPARISON: 03/30/2024 FINDINGS: ON NONCONTRAST IMAGING: ABDOMEN: Heart size is normal. Visible lung bases are clear. No abnormal renal calcifications, hydronephrosis, perinephric inflammation, or proximal hydroureter detected. The liver is normal in size and smooth in contour without biliary duct dilation. The spleen is normal in size and attenuation. The gallbladder appears normal. The pancreas appears normal without pancreatic duct dilation. The adrenal glands appear normal. No significant abdominal, retrocrural or retroperitoneal adenopathy noted. No evidence for intra-abdominal free air or organized fluid collection. No aortic aneurysmal dilation identified. PELVIS: No abnormal calcifications within the urinary bladder or distal ureters. No evidence for free air or organized pelvic fluid collection. No significant pelvic adenopathy detected. Moderate stool burden. Terminal ileum appears unremarkable. The appendix appears normal. Visible osseous structures are intact. IMPRESSION: No evidence for any acute intra-abdominal or pelvic process, including no evidence for urolithiasis. DICTATED BY: STANISLAV JAMESON MD DATE: 07/13/24 1121 ELECTRONICALLY SIGNED BY: STANISLAV JAMESON MD DATE: 07/13/24 1125 [facility] MDM: DIFFERENTIAL DIAGNOSIS: MUSCLE STRAIN, DRUG-SEEKING BEHAVIOR, PATIENT IS A 18-YEAR-OLD FEMALE COMING IN TO BE EVALUATED FOR FLANK PAIN. LABORATORY WORKUP AND CT DID NOT DISCLOSE ACUTE FINDING. HE WILL BE DISCHARGED IN STABLE CONDITION I ADVISED HER APPROPRIATE FOLLOW UP WITH PCP IN 1-2 DAYS. ED Course Orders Procedure Category Date Status Time Cbc With Differential LAB 07/13/24 Complete 07:28 Basic Metabolic Panel LAB 07/13/24 Complete 07:28 Urinalysis LAB 07/13/24 Complete W/Microscopic 07:28 Testing, LAB 07/13/24 Complete Serum Hcg 07:28 0.9%Nacl 1000ml (Ns PHA 07/13/24 Complete 1000ml) 07:30 Acetaminophen 500mg PHA 07/13/24 Complete Tab (Tylenol 500mg T 07:30 Drug Screen Urine LAB 07/13/24 Complete 07:28 Ketorolac PHA 07/13/24 Complete Tromethamine 30mg/Ml 09:00 Ct Abdomen/Pelvis W/O CT 07/13/24 Resulted Contrast 08:46 Culture Urine LIZETTE 07/13/24 In Process 08:50 Ondansetron 4mg Inj PHA 07/13/24 Complete (Zofran 4mg Inj) 10:00 Morphine 2mg Syg PHA 07/13/24 Complete (Morphine 2mg Syg) 10:00 Current Medications Medications (Trade) Dose Ordered Sig/Kendall Route PRN Reason Start Time Stop Time Status Last Admin Dose Admin Acetaminophen (TYLenol 500MG TAB) 1,000 mg ONCE ONCE PO 07/13/24 07:30 07/13/24 07:33 DC 07/13/24 08:20 Ketorolac Tromethamine (toRADol) 30 mg ONCE ONCE IM 07/13/24 09:00 07/13/24 09:01 DC 07/13/24 09:01 Morphine Sulfate (morPHINE 2MG SYG) 2 mg ONCE ONCE IVP 07/13/24 10:00 07/13/24 10:01 DC 07/13/24 10:30 Ondansetron HCl (zoFRAN 4MG INJ) 4 mg ONCE ONCE IVP 07/13/24 10:00 07/13/24 10:01 DC 07/13/24 10:30 Sodium Chloride 1,000 ml @ 0 mls/hr ONCE ONCE IV 07/13/24 07:30 07/13/24 07:33 DC 07/13/24 08:19 Vital Signs Date Time Temp Pulse Resp B/P (MAP) Pulse Ox O2 Delivery O2 Flow Rate FiO2 07/13/24 08:20 98.2 07/13/24 08:00 98.4 86 17 123/89 100 Room Air* 0 21 07/13/24 07:26 97.9 105 18 116/87 98 Room Air DX & DISP Disposition: Discharge Departure Impression: Primary Impression: Chronic abdominal pain Condition: Stable Additional Instructions: FOLLOW-UP WITH PRIMARY CARE PROVIDER IN 1 TO 2 DAYS. TAKE MEDICATIONS DIRECTED HERE IN THE EMERGENCY ROOM. OKAY TO CONTINUE HOME MEDICATIONS UNLESS OTHERWISE DISCUSSED DURING YOUR VISIT IN THE EMERGENCY ROOM TODAY. RETURN TO YOUR NEAREST EMERGENCY ROOM IF SYMPTOMS WORSEN OR IF THERE IS NO IMPROVEMENT. CALL 911 IF YOU NEED IMMEDIATE ASSISTANCE. TAKE TYLENOL [id number] NEEDED AND IF NO CONTRAINDICATIONS ARE PRESENT. INCREASE ORAL HYDRATION. A WOUND CULTURE OR URINE CULTURE WAS ORDERED HERE IN THE EMERGENCY ROOM DEPARTMENT PLEASE FOLLOW-UP WITH PRIMARY CARE PROVIDER AND ADVISE THEM TO GET REPEAT PORTS FROM OUR FACILITY. IF YOU HAD ANY LUIS WRAP/SPLINTS THAT WERE APPLIED HERE, PLEASE DO NOT REMOVE THEM UNTIL YOU SEE YOUR PRIMARY CARE OR SPECIALTY. REFERRALS: Referrals: MEHNAZ DOBBINS DO (PCP) Time of Disposition: 11:30 WINSTON IQBAL MD Jul 13, 2024 07:34
--- NOTE | 2024-07-13 07:45 | NUR ---
ASSEMED PATIENTS CARE
--- NOTE | 2024-07-13 07:50 | NUR ---
ASSESSMENT: PATIENT IS ALERT. ORIENTED IN PERSON, TIME AND PLACE. NO SIGNS OF SHORTNESS OF BREATH, LUNGS ARE CLEAR. NORMAL ABDOMINAL SOUNDS ON ALL FOUR ANDOMINAL QUADRANTS. AREA TENDER ON HER LEFT FLANK. PATIENT STATED A PAIN OF #9 ( IN A SCALE OF 1 BEING NON EXISTING AND 10 BEING THE WORST PAIN SHE HAS EVER FELT). DORSALIS PEDIS PULSES PRESENT ON BOTH FEET. PATIENT HAS A HISTORY OF DIABETES AND HIGH BLOOD PRESSURE.
[2024-07-13 08:00] VITALS: BP 123/89; PULSE 86; RESP 17; TEMP 98.5; O2SAT 100
[2024-07-13 08:09] LABS: BASOPHILS # (AUTO) 0.02 K/uL (0.00-0.20); BASOPHILS % (AUTO) 0.2 % (0.0-5.0); EOSINOPHILS # (AUTO) 0.14 K/uL (0.00-0.70); EOSINOPHILS % (AUTO) 1.3 % (0.0-8.0); HEMATOCRIT 45.2 % (36-48); IMMATURE GRANULOCYTE ABSOLUTE 0.04 K/uL (0-1); LYMPHOCYTES # (AUTO) 2.5 K/uL (1.0-4.8); LYMPHOCYTES % (AUTO) 23.5 % (21.0-51.0); MEAN CORPUSCULAR HEMOGLOBIN 26.3 pg (27.0-33.0); MEAN CORPUSCULAR HGB CONC 34.3 g/dL (32.0-36.0); MEAN CORPUSCULAR VOLUME 76.7 fL (80-100); MONOCYTES # (AUTO) 0.8 K/uL (0.1-1.0); MONOCYTES % (AUTO) 7.6 % (3.0-13.0); NEUTROPHILS # (AUTO) 7.3 K/uL (1.8-7.7); PLATELET COUNT (AUTO) 266 K/uL (130-400); RED BLOOD CELL COUNT(AUTO) 5.89 MIL/uL (4.00-5.50); RED CELL DISTRIBUTION WIDTH 12.7 % (11.0-15.5); WHITE BLOOD COUNT (AUTO) 10.8 K/uL (4.8-10.8)
[2024-07-13 08:11] LABS: APPEARANCE,URINE TURBID (CLEAR); BILIRUBIN,URINE NEGATIVE (NEGATIVE); COLOR,URINE STRAW (YELLOW); GLUCOSE, URINE (UA) >=1000 mg/dL (NEGATIVE); KETONES,URINE 15 mg/dL (NEGATIVE); LEUKOCYTE ESTERASE ,URINE SMALL Leu/uL (NEGATIVE); NITRATE,URINE NEGATIVE (NEGATIVE); OCCULT BLOOD,URINE MODERATE (NEGATIVE); PH,URINE 6.5 (5.0-8.0); PROTEIN,URINE NEGATIVE (NEGATIVE); UROBILINOGEN,URINE 0.2 mg/dL (0.2-1.0)
[2024-07-13] MEDS ORDERED: INSLAN SQ (08:12)
[2024-07-13] MEDS ORDERED: LISI20TA24 PO (08:13)
[2024-07-13] MEDS ORDERED: BUSP5TAB3 PO (08:14)
[2024-07-13] MEDS ORDERED: DAPA5TAB PO (08:14)
[2024-07-13] MEDS: 0.9%NACL 1000ML 1,000 ML IV ONE (08:19)
[2024-07-13 08:20] VITALS: TEMP 98.2
[2024-07-13] MEDS: acetaMINOPHEN 500 MG TABLET PO ONE (08:20)
[2024-07-13 08:29] LABS: AMPHET/METH SCREEN,URINE NEGATIVE (NEGATIVE); BARBITURATE SCREEN, URINE NEGATIVE (NEGATIVE); BENZODIAZEPINES SCREEN,URINE NEGATIVE (NEGATIVE); CANNABINOID SCREEN,URINE NEGATIVE (NEGATIVE); COCAINE SCREEN,URINE NEGATIVE (NEGATIVE); OPIATE SCREEN,URINE NEGATIVE (NEGATIVE); PHENCYCLIDINE SCREEN,URINE NEGATIVE (NEGATIVE)
[2024-07-13 08:44] LABS: CREATININE 0.5 mg/dL (0.5-1.0); POTASSIUM 3.5 mmol/L (3.5-5.1)
[2024-07-13 08:49] LABS: BACTERIA,URINE Moderate /HPF (None Seen); SQUAMOUS EPITHELIAL CELL,UR Few /HPF (0-2); WBC,URINE TNTC /HPF (0-1)
[2024-07-13] MEDS: ketOROlac 30MG VIAL (30MG/ML) IM ONE (09:01)
[2024-07-13] MEDS: morPHINE 2 MG SYG IVP ONE (10:30)
[2024-07-13] MEDS: ondanSETRON 4MG INJ IVP ONE (10:30)
--- NOTE | 2024-07-13 11:25 | HMCIMG ---
CT ABDOMEN WITHOUT CONTRAST. CT PELVIS WITHOUT CONTRAST. INDICATION: Left flank pain TECHNIQUE: Routine transaxial imaging using 5 mm slice thickness through the abdomen and pelvis without the administration of IV contrast. Thin slice reconstructions are also provided. Coronal and sagittal reformatted images acquired for interpretation. CT was performed with one or more of the following dose reduction techniques: Automated exposure control, adjustment of the mA and/or kV according to patient size, or use of iterative reconstruction technique. COMPARISON: 03/30/2024 FINDINGS: ON NONCONTRAST IMAGING: ABDOMEN: Heart size is normal. Visible lung bases are clear. No abnormal renal calcifications, hydronephrosis, perinephric inflammation, or proximal hydroureter detected. The liver is normal in size and smooth in contour without biliary duct dilation. The spleen is normal in size and attenuation. The gallbladder appears normal. The pancreas appears normal without pancreatic duct dilation. The adrenal glands appear normal. No significant abdominal, retrocrural or retroperitoneal adenopathy noted. No evidence for intra-abdominal free air or organized fluid collection. No aortic aneurysmal dilation identified. PELVIS: No abnormal calcifications within the urinary bladder or distal ureters. No evidence for free air or organized pelvic fluid collection. No significant pelvic adenopathy detected. Moderate stool burden. Terminal ileum appears unremarkable. The appendix appears normal. Visible osseous structures are intact. IMPRESSION: No evidence for any acute intra-abdominal or pelvic process, including no evidence for urolithiasis.
== END 2024-07-13 12:50 | disposition home or self-care (01) ==
LOC: EDH 07:24
DX: G89.29 Other chronic pain (principal); R10.9 Unspecified abdominal pain; E11.9 Type 2 diabetes mellitus without complications; E78.00 Pure hypercholesterolemia, unspecified; I10 Essential (primary) hypertension; Z79.4 Long term (current) use of insulin; Z79.84 Long term (current) use of oral hypoglycemic drugs; Z79.899 Other long term (current) drug therapy; Z86.73 Personal history of transient ischemic attack (TIA), and cerebral infarction without residual deficits
CPT/HCPCS: 99285; 74176; 96374; 96361; 96375; 80048; 80305; 84703; 85025; 87086 ×2; 87186; 36415; 96372; 81001; J1885; J2270; J7030; J2405

== ENCOUNTER 2024-11-10 19:16 | Emergency (ER) | payer MEDICAID ==
[~2024-11-10] VITALS: Ht 157.5 cm; Wt 70.8 kg
[~2024-11-10 19:16] MED LIST changes: +BUSP5TAB3 PO; +DAPA5TAB PO; +INSLAN SQ; +LISI20TA24 PO
--- NOTE | 2024-11-10 19:25 | ERN ---
ED Note History of Present Illness Stated Complaint: ABD PAIN, BACK PAIN Chief Complaint: Abdominal Pain Time Seen by MD: 19:19 Dictation: PATIENT IS A 19-YEAR-OLD FEMALE COMING IN TODAY WITH BILATERAL FLANK PAIN WORSE ON THE RIGHT THEY RADIATES TO LOWER QUADRANTS BILATERALLY AND FEELS LIKE NEEDLES. STATES SHE HAS BEEN HAVING DIFFICULTY URINATING FOR THE LAST SEVERAL DAYS. NO FEVER NO CHILLS NO NAUSEA VOMITING. DENIES HISTORY OF PYELONEPHRITIS OR UROLITHIASIS. STATES SHE SEEN HER PRIMARY CARE DOCTOR WHO DID LABS AND TOLD HER EVERYTHING WAS FINE. SHE HAS NOT TAKEN ANYTHING TODAY PRIOR TO ARRIVAL FOR PAIN TODAY, THE PAIN IS FOCALIZED TO THE RIGHT FLANK RADIATING AROUND. Allergies: Coded Allergies: No Known Drug Allergies (Unverified Allergy, Unknown, 11/03/19) Home Meds Active Scripts Ibuprofen (Ibuprofen 800 mg Tab) 800 Mg Tab, 800 MG PO Q8H PRN for fever or pain, #30 TAB 0 Refills Prov:ESTUARDO JUAREZ NP 03/30/24 Phenazopyridine HCl (Pyridium) 200 Mg Tablet, 200 MG PO TID for painful urination, #10 TAB 0 Refills Prov:ESTUARDO JUAREZ NP 03/30/24 Amoxicillin/Potassium Clav (Amox Tr-K Clv 875-125 mg Tab) 875 Mg-125 Mg Tablet, 1 EACH PO BID for 7 Days, #14 TAB 0 Refills Prov:ESTUARDO JUAREZ NP 03/30/24 Phenazopyridine HCl (Pyridium) 200 Mg Tablet, 200 MG PO TID for painful urination, #10 TAB 0 Refills Prov:GERRY LEIGH MD 03/14/24 Nitrofurantoin Monohyd/M-Cryst (Macrobid 100 mg Capsule) 100 Mg Capsule, 1 CAP PO BID for 10 Days, #20 CAP 0 Refills Prov:GERRY LEIGH MD 03/14/24 Peg 3350/Na Sulf,Bicarb,Cl/KCl (Golytely/Colyte Soln) 236-22.74G Soln, 4000 ML PO AD, #1 ML Mix as directed with water, drink 1 cup every 10 to 15 minutes until stools. Prov:ESTUARDO JUAREZ NP 06/14/23 Ondansetron (Ondansetron Odt) 4 Mg Tab.rapdis, 4 MG PO Q6HPRN PRN for nausea, #10 TAB 0 Refills Prov:JANY BONNER Sr., MD 03/02/23 Metronidazole (Metronidazole) 500 Mg Tablet, 500 MG PO TID for 10 Days, #30 TAB 0 Refills Prov:JANY BONNER Sr., MD 03/02/23 Metronidazole (Metronidazole) 500 Mg Tablet, 500 MG PO TID for 10 Days, #30 TAB 0 Refills Prov:JANY BONNER Sr., MD 02/03/23 Reported Medications Dapagliflozin Propanediol (Farxiga) 5 Mg Tablet, 1 TAB PO DAILY for 30 Days, #30 TAB 0 Refills 07/13/24 Buspirone HCl (Buspirone HCl) 5 Mg Tablet, 1 TAB PO BID for 30 Days, #60 TAB 0 Refills 07/13/24 Lisinopril (Lisinopril) 20 Mg Tablet, 1 TAB PO DAILY for 30 Days, #30 TAB 0 Refills 07/13/24 Insulin Glargine,Hum.rec.anlog (Lantus) 100 Unit/Ml Inj, 100 UNITS SQ DAILY, ML 07/13/24 Past Medical History Past Medical History: Bipolar, CVA, Diabetes-Type I, Diabetes-Type II, High Cholesterol, Hypertension, Seizure Additional Past Medical Hx: 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 Surgical History: None Family History: Negative History: Not Applicable RN Note Reviewed/Agreed w/PFSH: Yes Review of System Dictation CONSTITUTIONAL: NEGATIVE EXCEPT FOR HPI HEAD/FACE: NEGATIVE EXCEPT FOR HPI EENT: NEGATIVE EXCEPT FOR HPI RESPIRATORY: NEGATIVE EXCEPT FOR HPI GASTROINTESTINAL/ABDOMINAL: NEGATIVE EXCEPT FOR HPI BILATERAL FLANK PAIN THAT RADIATES TO RIGHT LOWER QUADRANT AND LEFT LOWER QUADRANT WORSE ON THE RIGHT GENITOURINARY: NEGATIVE EXCEPT FOR HPI MUSCULOSKELETAL: NEGATIVE EXCEPT FOR HPI INTEGUMENTARY: NEGATIVE EXCEPT FOR HPI NEUROLOGICAL/PSYCH: NEGATIVE EXCEPT FOR HPI HEMATOLOGIC/LYMPHATIC: NEGATIVE EXCEPT FOR HPI ALL SYSTEMS NEGATIVE, EXCEPT NOTED ABOVE. 13 POINT REVIEW OF SYSTEMS ASSESSED AND ALL NEGATIVE EXCEPT FOR ABOVE. Initial Vital Sign VS Vital Signs Date Time Temp Pulse Resp B/P (MAP) Pulse Ox O2 Delivery O2 Flow Rate FiO2 11/10/24 19:21 98.6 119 20 115/79 97 Room Air 11/10/24 21:15 0 21 Physical Exam Dictation VITAL SIGNS REVIEWED GENERAL APPEARANCE: ALERT, ORIENTED X 3, MILD ACUTE DISTRESS, WELL DEVELOPED, NOURISHED. HEAD AND FACE: NON-TRAUMATIC. EYES: PERRL, PINK CONJUNCTIVAS, EYELID NO TRAUMA, ANTERIOR CHAMBER WITH ARCUS SENILIS. EARS: PINNAS INTACT AND NO SIGNS OF TRAUMA OR ERYTHEMA EAR CANALS CLEAR AND NO DISCHARGE TM NO ERYTHEMA NOSE: NO DISCHARGE, NO BLEEDING. OROPHARYNX: MOUTH NORMAL, TONGUE PINK, PHARYNX CLEAR,NO ERYTHEMA, TONSILS NO EXUDATES, NO ABSCESSES NOTED, MUCOUS MEMBRANE MOIST NECK: SUPPLE, NON-TENDER, NO THYROMEGALY, NO MASSES, NO JVD, NO BRUITS BREAST:DEFERRED CHEST:NO TENDERNESS, NO CREPITUS, NO PARADOXICAL MOVEMENT, NO RETRACTIONS LUNGS:CLEAR, WELL-VENTILATED, SYMMETRIC, NO RALES, NO WHEEZING, NO RHONCHI, NO STRIDOR, GOOD BREATH SOUNDS BILATERALLY HEART: REGULAR RATE, REGULAR RHYTHM, NO MURMUR, NO GALLOPS VASCULAR: NO PERIPHERAL EDEMA, ABDOMEN: SOFT, POSITIVE BOWEL SOUNDS, NONDISTENDED, NO GUARDING, NONTENDER, NO REBOUND, NO MASSES NO HEPATOMEGALY, NO SPLENOMEGALY, NO DAVISON'S SIGN, NO HERNIAS. NEGATIVE CVAT BILATERALLY RECTAL: DEFERRED GENITAL: DEFERRED NEUROLOGICAL: NORMAL SPEECH, MOTOR FUNCTION INTACT, SENSORY FUNCTION INTACT MUSCULOSKELETAL: NECK NONTENDER, FULL RANGE OF MOTION, BACK NONTENDER, FULL RANGE OF MOTION, EXTREMITIES: NONTENDER, FULL RANGE OF MOTION SKIN: COLOR PINK, DRY, NO TURGOR, NO RASH, NO LACERATIONS, NO ABRASIONS, NO CONTUSIONS. LYMPHATIC: DEFERRED Results (Laboratory/Radiology) Laboratory/Radiology Laboratory Tests Test 11/10/24 19:28 11/10/24 19:57 Urine Color LIGHT-YELLOW (YELLOW) Urine Appearance CLOUDY (CLEAR) H Urine pH 5.5 (5.0-8.0) Urine Specific [place] 1.032 (1.001-1.031) Urine Protein NEGATIVE mg/dL (NEGATIVE) Urine Glucose (UA) >=1000 mg/dL (NEGATIVE) H Urine Ketones 5 mg/dL (NEGATIVE) H Urine Occult Blood NEGATIVE (NEGATIVE) Urine Nitrate 2+ (NEGATIVE) H Urine Bilirubin NEGATIVE mg/dL (NEGATIVE) Urine Urobilinogen 0.2 mg/dL (0.2-1.0) Urine Leukocyte Esterase 250 Bernice/uL (NEGATIVE) H Urine RBC 2-5 /HPF (0-1) H Urine WBC 26-50 /HPF (0-1) H Urine WBC Clumps (Auto) RARE /HPF (0-1) Urine Squamous Epithelial Cells RARE /HPF (0-2) Urine Bacteria RARE /HPF (None Seen) Urine HCG, Qualitative NEGATIVE (NEGATIVE) White Blood Count 10.1 K/uL (4.8-10.8) Red Blood Count 5.90 MIL/uL (4.00-5.50) H Hemoglobin 15.3 g/dL (12.0-16.0) Hematocrit 44.6 % (36-48) Mean Corpuscular Volume 75.6 fL (80-100) L Mean Corpuscular Hemoglobin 25.9 pg (27.0-33.0) L Mean Corpuscular Hemoglobin Concent 34.3 g/dL (32.0-36.0) Red Cell Distribution Width 12.7 % (11.0-15.5) Platelet Count 297 K/uL (130-400) Mean Platelet Volume 11.9 fL (7.5-10.5) H Immature Granulocyte % (Auto) 0.2 % (0-1) Neutrophils (%) (Auto) 62.4 % (40.0-77.0) Lymphocytes (%) (Auto) 27.9 % (21.0-51.0) Monocytes (%) (Auto) 6.7 % (3.0-13.0) Eosinophils (%) (Auto) 2.3 % (0.0-8.0) Basophils (%) (Auto) 0.5 % (0.0-5.0) Neutrophils # (Auto) 6.3 K/uL (1.8-7.7) Lymphocytes # (Auto) 2.8 K/uL (1.0-4.8) Monocytes # (Auto) 0.7 K/uL (0.1-1.0) Eosinophils # (Auto) 0.23 K/uL (0.00-0.70) Basophils # (Auto) 0.05 K/uL (0.00-0.20) Absolute Immature Granulocyte (auto 0.02 K/uL (0-1) Nucleated Red Blood Cells 0.0 % (0.0-0.19) Sodium Level 134 mmol/L (136-145) L Potassium Level 4.5 mmol/L (3.5-5.1) Chloride Level 98 mmol/L (101-111) L Carbon Dioxide Level 27 mmol/L (21-32) Blood Urea Nitrogen 10 mg/dL (7-18) Creatinine 0.6 mg/dL (0.5-1.0) Glomerular Filtration Rate Calc 132 mL/min (>90) Random Glucose 495 mg/dL (70-105) *H Total Calcium 9.4 mg/dL (8.5-10.1) Lipase 29 U/L (16-77) Unremarkable. GALLBLADDER AND BILE DUCTS: The gallbladder appears within normal limits. No radioopaque gallstones are seen. No biliary ductal dilatation is evident. PANCREAS: Unremarkable. SPLEEN: Unremarkable. ADRENAL GLANDS: Unremarkable. KIDNEYS, URETERS, AND BLADDER: The kidneys appear within normal limits. There is no hydronephrosis or hydroureter. No urinary calculi are seen. STOMACH AND BOWEL: Unremarkable appearance of the stomach and bowel. No evidence of bowel obstruction. No evidence suggesting enteritis or colitis. APPENDIX: Normal appendix. PERITONEUM: No free fluid. No free air. LYMPH NODES: No lymphadenopathy is evident. REPRODUCTIVE: Unremarkable as visualized. VASCULATURE: No evidence of abdominal aortic aneurysm. BONES: No aggressive appearing osseous lesion. No acute osseous pathology evident. IMPRESSION: No acute intra-abdominal or pelvic abnormality. /[facility] Labs Reviewed?: Yes ED Course ED Course Orders Procedure Category Date Status Time Cbc With Differential LAB 11/10/24 Complete 19:22 ,Urine Test LAB 11/10/24 Complete 19:22 Urinalysis Profile LAB 11/10/24 Complete 19:22 0.9%Nacl 1000ml (Ns PHA 11/10/24 Complete 1000ml) 19:30 Ct Abdomen/Pelvis W/O CT 11/10/24 Resulted Contrast 19:22 Lipase LAB 11/10/24 Complete 19:22 Basic Metabolic Panel LAB 11/10/24 Complete 19:22 Culture Urine LIZETTE 11/10/24 In Process 19:43 0.9%Nacl 1000ml (Ns PHA 11/10/24 Complete 1000ml) 21:00 Insulin Regular, PHA 11/10/24 Complete Human 3ml (Humulin R 21:00 Current Medications Medications (Trade) Dose Ordered Sig/Kendall Route PRN Reason Start Time Stop Time Status Last Admin Dose Admin Insulin Human Regular (humuLIN R 100 UNIT/ML 3ML) 15 unit ONCE ONCE IV 11/10/24 21:00 11/10/24 21:01 DC Sodium Chloride 1,000 ml @ 0 mls/hr ONCE ONCE IV 11/10/24 19:30 11/10/24 20:34 DC Sodium Chloride 2,124 ml @ 708 mls/hr ONCE ONCE IV 11/10/24 21:00 11/10/24 21:20 DC Vital Signs Date Time Temp Pulse Resp B/P (MAP) Pulse Ox O2 Delivery O2 Flow Rate FiO2 11/10/24 21:15 98.4 88 18 125/66 99 Room Air* 0 21 11/10/24 19:21 98.6 119 20 115/79 97 Room Air Medical Decision Making MDM MEDICAL DECISION-MAKING WAS BASED ON BASIC LABS FOR A POSSIBLE PYELONEPHRITIS VERSUS UROLITHIASIS LABS ESSENTIALLY UNREMARKABLE EXCEPT HEMATURIA. CT NEGATIVE PATIENT HAD 495 BLOOD SUGAR WITH NORMAL BICARB. I ADVISED PATIENT ON WANTED TO GIVE HER 30 PER KILOS FLUIDS AND REGULAR INSULIN SHE TOLD THE NURSE AFTER I LEFT THAT SHE WANTED TO GO HOME AND SIGNED OUT AGAINST MEDICAL ADVICE. DX & DISP Disposition: AMA Departure Impression: Primary Impression: Acute right flank pain Additional Impressions: Uncontrolled diabetes mellitus, Microscopic hematuria, Hyponatremia, Hypochloremia Condition: Stable Referrals: SELF,REFERRAL (PCP) Time of Disposition: 21:25 I have reviewed the case, and I agree with, Diagnosis and Plan ESTUARDO JUAREZ [employer] DIRECT[employer] Nov 10, 2024 19:25
[2024-11-10] MEDS ORDERED: 0.9%NACL 1000ML 1,000 ML IV ONE (19:30)
[2024-11-10 19:37] LABS: HCG,QUALITATIVE URINE NEGATIVE (NEGATIVE)
[2024-11-10 19:42] LABS: APPEARANCE,URINE CLOUDY (CLEAR); GLUCOSE, URINE (UA) >=1000 mg/dL (NEGATIVE); LEUKOCYTE ESTERASE ,URINE 250 Leu/uL (NEGATIVE); NITRATE,URINE 2+ (NEGATIVE); OCCULT BLOOD,URINE NEGATIVE (NEGATIVE)
[2024-11-10 19:43] LABS: ADD UA MICROSCOPIC YES
[2024-11-10 19:45] LABS: SQUAMOUS EPITHELIAL CELL,UR RARE /HPF (0-2); WBC CLUMP RARE /HPF (0-1)
[2024-11-10 20:09] LABS: IMMATURE GRANULOCYTE ABSOLUTE 0.02 K/uL (0-1); NUCLEATED RED BLOOD CELLS 0.0 % (0.0-0.19); PLATELET COUNT (AUTO) 297 K/uL (130-400); RED BLOOD CELL COUNT(AUTO) 5.90 MIL/uL (4.00-5.50); RED CELL DISTRIBUTION WIDTH 12.7 % (11.0-15.5); WHITE BLOOD COUNT (AUTO) 10.1 K/uL (4.8-10.8)
--- NOTE | 2024-11-10 20:18 | HMCIMG ---
EXAM: CT Abdomen and Pelvis Without IV contrast CLINICAL HISTORY: FLANK PAIN THAT RADIATES TO RIGHT LOWER QUADRANT TECHNIQUE: Axial computed tomography images of the abdomen and pelvis without intravenous contrast. CONTRAST: No IV contrast. COMPARISON: None provided. FINDINGS: LUNG BASES: The lung bases appear clear. No pleural effusions are seen. LIVER: Unremarkable. GALLBLADDER AND BILE DUCTS: The gallbladder appears within normal limits. No radioopaque gallstones are seen. No biliary ductal dilatation is evident. PANCREAS: Unremarkable. SPLEEN: Unremarkable. ADRENAL GLANDS: Unremarkable. KIDNEYS, URETERS, AND BLADDER: The kidneys appear within normal limits. There is no hydronephrosis or hydroureter. No urinary calculi are seen. STOMACH AND BOWEL: Unremarkable appearance of the stomach and bowel. No evidence of bowel obstruction. No evidence suggesting enteritis or colitis. APPENDIX: Normal appendix. PERITONEUM: No free fluid. No free air. LYMPH NODES: No lymphadenopathy is evident. REPRODUCTIVE: Unremarkable as visualized. VASCULATURE: No evidence of abdominal aortic aneurysm. BONES: No aggressive appearing osseous lesion. No acute osseous pathology evident. IMPRESSION: No acute intra-abdominal or pelvic abnormality. /[place]
[2024-11-10 20:26] LABS: CREATININE 0.6 mg/dL (0.5-1.0); GLOMERULAR FILTR. RATE CALC 132.0 mL/min (>90); SODIUM SERUM 134.0 mmol/L (136-145); UREA NITROGEN, BLOOD 10.0 mg/dL (7-18)
[2024-11-10 20:30] LABS: GLUCOSE,RANDOM 495.0 mg/dL (70-105)
[2024-11-10] MEDS ORDERED: [UNRECOGNIZED DRUG - OTHER] IV ONE (21:00)
--- NOTE | 2024-11-10 21:12 | NUR ---
ASSUMED PT CARE
--- NOTE | 2024-11-10 21:13 | NUR ---
PATIENT REFUSED TO HAVE HER MEDICATIONS. DECIDED TO GO HOME AGAINST MEDICAL ADVISE. CONSENT SECURED
[2024-11-10 21:15] VITALS: BP 125/66; PULSE 88; RESP 18; TEMP 98.5; O2SAT 99
== END 2024-11-10 21:10 | disposition left against medical advice (07) ==
LOC: EDH 19:16
DX: E11.65 Type 2 diabetes mellitus with hyperglycemia (principal); R31.29 Other microscopic hematuria; E87.1 Hypo-osmolality and hyponatremia; E78.00 Pure hypercholesterolemia, unspecified; E87.8 Other disorders of electrolyte and fluid balance, not elsewhere classified; I10 Essential (primary) hypertension; R10.9 Unspecified abdominal pain; Z79.4 Long term (current) use of insulin; Z79.84 Long term (current) use of oral hypoglycemic drugs; Z79.899 Other long term (current) drug therapy; Z86.73 Personal history of transient ischemic attack (TIA), and cerebral infarction without residual deficits
CPT/HCPCS: 36415; 74176; 80048; 81001; 81025; 83690; 85025; 87086; 87186; 99284